=== PATIENT | male | born 1965 | race Caucasian/White ===

== ENCOUNTER 2017-03-28 13:38 | Emergency (ER) | payer MEDICAID ==
[2017-03-28 13:52] VITALS: BP 137/87
--- NOTE | 2017-03-28 14:35 | EDM.PDOC ---
ED HPI GENERAL MEDICAL PROBLEM - General Chief Complaint: Upper Extremity Injury/Pain Stated Complaint: DIZZY/TINGLING ON LT SIDE/PAIN IN SHOULDER BLADE Time Seen by Provider: 03/28/17 14:28 Source of Information: Reports: Patient, RN Notes Reviewed History Limitations: Reports: No Limitations - History of Present Illness INITIAL COMMENTS - FREE TEXT/NARRATIVE: 51-year-old gentleman presents emergency department day complaint of left arm pain and tingling been going on for the last several hours somewhat intermittent no nausea vomiting shortness breath chest pain no real diaphoresis he does have cardiac history has an AICD in place is a tobacco user Right Shoulder Pain Score (Numeric/FACES): 2 - Related Data Allergies Allergy/AdvReac Type Severity Reaction Status Date / Time aspirin AdvReac Stomach Verified 03/25/16 18:59 Upset Home Meds: Home Meds Cyclobenzaprine [Flexeril] 10 mg PO TID PRN 01/02/15 [History] Propranolol [Inderal LA] 120 mg PO DAILY 01/02/15 [History] SUMAtriptan Succinate [Imitrex] 100 mg PO ASDIRECTED PRN 01/02/15 [History] Simvastatin [Zocor] 20 mg PO BEDTIME 01/02/15 [History] Tamsulosin [Flomax] 0.4 mg PO DAILY 01/02/15 [History] Sacubitril/Valsartan [Entresto 49 mg-51 mg Tablet] 41 mg PO BID 03/28/17 [ History] Past Medical History HEENT History: Reports: Impaired Vision Other HEENT History: wears glasses Cardiovascular History: Reports: High Cholesterol, Hypertension, Pacemaker Respiratory History: Reports: Bronchitis, Recurrent Gastrointestinal History: Reports: Colon Polyp, GERD, Hemorrhoids Genitourinary History: Reports: Prostate Disorder Musculoskeletal History: Reports: Back Pain, Chronic, Fracture Neurological History: Reports: Migraines - Infectious Disease History Infectious Disease History: Reports: Chicken Pox, Measles - Past Surgical History Cardiovascular Surgical History: Reports: Pacer GI Surgical History: Reports: Colonoscopy, Hernia, Inguinal, Hernia Repair/Other , Other (See Below) Musculoskeletal Surgical History: Reports: Other (See Below) Social & Family History - Family History Neurological: Reports: CVA Endocrine/Metabolic: Reports: IDDM - Tobacco Use Smoking Status *Q: Current Every Day Smoker Years of Tobacco use: 35 Packs/Tins Daily: 1 Second Hand Smoke Exposure: Yes - Caffeine Use Caffeine Use: Reports: Coffee - Alcohol Use Days Per Week of Alcohol Use: 1 Number of Drinks Per Day: 2 Total Drinks Per Week: 2 Date of Last Drink: 04/15/17 - Recreational Drug Use Recreational Drug Use: No Review of Systems - Review of Systems Review Of Systems: See Below Constitutional: Reports: No Symptoms Respiratory: Reports: No Symptoms Cardiovascular: Reports: No Symptoms GI/Abdominal: Reports: No Symptoms Musculoskeletal: Reports: Arm Pain Neurological: Reports: Tingling ED EXAM, GENERAL - Physical Exam Exam: See Below Free Text/Narrative:: General: Male, not in any distress, alert and oriented x3 HEENT: head is atraumatic normocephalic, eyes pupils equal round reactive to light, sclera clear no conjunctivitis appreciated. Ears tympanic membranes clear and jimenes landmarks and light reflex are present bilaterally canals are clear. Nose no septal deviation, nares are clear, no blood present. Mouth mucosa is moist and pink no erythema or exudate noted in soft palate, tongue is midline uvula is midline, dentition is intact. Neck: Supple no thyromegaly no tracheal deviation. Nodes: Cervical nodes subclavicular nodes nontender no palpable lymphadenopathy noted. Lungs: clear to auscultation bilaterally with symmetrical respirations, no adventitious noise appreciated. CV: Regular rate and rhythm S1 and S2 appreciated no murmurs rubs or gallops noted. Abdomen: Soft, nontender, no palpable masses or organomegaly appreciated, no distention no guarding bowel sounds are present, . Neuro: Cranial nerves II through XII grossly intact Skin: Warm and dry, intact Extremities: No lower extremity edema appreciated, Course - Vital Signs Last Recorded V/S: Last Vital Signs Temp 97.3 F 03/28/17 13:49 Pulse 72 03/28/17 13:49 Resp 18 03/28/17 13:49 BP 137/87 03/28/17 13:49 Pulse Ox - Orders/Labs/Meds Orders: Active Orders 24 hr Category Date Time Status Cardiac Monitoring [RC] .As Directed Care 03/28/17 14:31 Active EKG Documentation Completion [RC] ASDIRECTED Care 03/28/17 14:32 Active Chest 2V [CR] Stat Exams 03/28/17 14:32 Taken EKG 12 Lead [EK] Stat Ther 03/28/17 14:32 Ordered Labs: Laboratory Tests 03/28/17 03/28/17 03/28/17 Range/Units 14:45 14:45 14:45 WBC 10.6 (4.5-11.0) K/uL RBC 5.54 (4.30-5.90) M/uL Hgb 16.8 H (12.0-15.0) g/dL Hct 49.6 (40.0-54.0) % MCV 90 (80-98) fL MCH 30 (27-31) pg MCHC 34 (32-36) % Plt Count 223 (150-400) K/uL Neut % (Auto) 57 (36-66) % Lymph % (Auto) 28 (24-44) % Yell % (Auto) 10 H (2-6) % Eos % (Auto) 3 (2-4) % Baso % (Auto) 1 (0-1) % D-Dimer, Quantitative 504 H (0.0-400.0) ng/mL Sodium 141 (140-148) mmol/L Potassium 4.5 (3.6-5.2) mmol/L Chloride 104 (100-108) mmol/L Carbon Dioxide 28 (21-32) mmol/L Anion Gap 8.7 (5.0-14.0) mmol/L BUN 13 (7-18) mg/dL Creatinine 0.9 (0.8-1.3) mg/dL Est Cr Clr Drug Dosing 79.48 mL/min Estimated GFR (MDRD) > 60 (>60) Glucose 88 (74-106) mg/dL Calcium 9.6 (8.5-10.1) mg/dL Total Bilirubin 0.5 (0.2-1.0) mg/dL AST 22 (15-37) U/L ALT 32 (12-78) U/L Alkaline Phosphatase 83 (46-116) U/L Troponin I < 0.017 (0.000-0.056) ng/mL Total Protein 6.9 (6.4-8.2) g/dL Albumin 3.4 (3.4-5.0) g/dL Globulin 3.5 (2.3-3.5) g/dL Albumin/Globulin Ratio 1.0 L (1.2-2.2) Departure - Departure Time of Disposition: 15:50 Disposition: Home, Self-Care 01 Condition: Good Clinical Impression: Left arm pain, Left arm pain - Discharge Information Referrals: Karly Meng NP [Primary Care Provider] - Forms: ED Department Discharge Additional Instructions: Continue with your regular medications, Please followup with your primary care provider in 3-5 days if not better, please call return to the emergency department with worsening of symptoms. - My Orders Last 24 Hours: My Active Orders 03/28/17 14:31 Cardiac Monitoring [RC] .As Directed 03/28/17 14:32 EKG Documentation Completion [RC] ASDIRECTED Chest 2V [CR] Stat EKG 12 Lead [EK] Stat - Assessment/Plan Last 24 Hours: My Active Orders 03/28/17 14:31 Cardiac Monitoring [RC] .As Directed 03/28/17 14:32 EKG Documentation Completion [RC] ASDIRECTED Chest 2V [CR] Stat EKG 12 Lead [EK] Stat Plan: Assessment Acuity = acute Site and laterality = left arm pain Etiology = probably related to recent implantation of defibrillator Manifestations = none Location of injury = Home Lab values = CBC, CMP, troponin all within normal limits d-dimer elevated at 504 probably related to recent surgery, EKG demonstrates left bundle branch block, chest x-ray shows no acute process Plan I did review lab work EKG chest x-ray results with him he elected to watchful waiting rather than proceed with any further image studies such as a CAT scan, he is to follow-up with his primary care in the next 3-5 days if no improvement Patient was in agreement with the plan all questions were answered, they were instructed to return to the emergency department or call for worsening symptoms. This note was dictated using [employer] voice recognition software please call with any questions.
--- NOTE | 2017-03-29 09:05 | CR ---
Chest 2V INDICATION: Left arm pain FINDINGS: Left-sided AICD in place. Chest otherwise negative.
== END 2017-03-28 16:14 | disposition home or self-care (01) ==
LOC: JP.ED 13:38
DX: M79.602 Pain in left arm (principal); F17.210 Nicotine dependence, cigarettes, uncomplicated
CPT/HCPCS: 36415; 71020; 71020-26; 80053; 84484; 85025; 85379; 93005; 99284-25

== ENCOUNTER 2019-03-03 06:56 | Day surgery (SDC) | payer MEDICAID ==
[2019-03-03] MEDS ORDERED: Lactated Ringers 1,000 ML IV SCH ×2 (07:45→09:00)
[2019-03-03] MEDS ORDERED: Midazolam 1 MG/ML 2 ML SDV ONE (08:19)
[2019-03-03] MEDS ORDERED: Propofol 200 MG/20 ML SDV ONE (08:19)
[2019-03-03] MEDS ORDERED: fentaNYL 100 MCG/2 ML SDV ONE (08:19)
[2019-03-03 10:09] VITALS: BP 94/61; PULSE 60
--- NOTE | 2019-03-03 11:43 | OR ---
DATE OF PROCEDURE: 03/03/2019 SURGEON: Nba Carballo MD PREOPERATIVE DIAGNOSIS: History of colon polyps. POSTOPERATIVE DIAGNOSES: Diverticulosis, history of colon polyps. PROCEDURE: Colonoscopy to the cecum. ANESTHESIA: IV anesthesia with monitored anesthesia care. INDICATION: This 53-year-old white male is referred for a colonoscopy because of a history of colon polyps. He says the last colonoscopic exam was done about 4 years ago. I counseled him for the procedure, including risks and alternatives, and he gave his informed consent to proceed. DESCRIPTION OF PROCEDURE: The patient was placed in the left lateral decubitus position. IV anesthesia was administered by the Anesthesia Service. Time-out was held. A rectal exam was performed, which was unremarkable. The flexible video Olympus colonoscope was introduced through his anus, up his rectum, out his colon all the way to the cecum. En route, we saw a few scattered left-sided diverticula. There was no bleeding or inflammation associated with them. Once the cecum was reached, the scope was slowly withdrawn, examining the mucosa throughout. No additional mucosal abnormalities were noted. The scope was retroflexed in the rectum with the distal rectum appearing unremarkable. The scope was straightened and removed. He tolerated the procedure well. Nba Carballo MD /[id number]
== END 2019-03-03 10:11 | disposition home or self-care (01) ==
LOC: JP.SDS 06:56
PROVIDERS: ATTEND Surgery
DX: Z12.11 Encounter for screening for malignant neoplasm of colon (principal); K57.30 Diverticulosis of large intestine without perforation or abscess without bleeding; K21.9 Gastro-esophageal reflux disease without esophagitis; E78.5 Hyperlipidemia, unspecified; F17.210 Nicotine dependence, cigarettes, uncomplicated; Z88.6 Allergy status to analgesic agent; Z86.010 Personal history of colon polyps
CPT/HCPCS: 45378; J2250; J2704; J3010; J7120

== ENCOUNTER 2020-05-05 10:56 | Emergency (ER) | payer MEDICAID ==
[2020-05-05 11:25] VITALS: BP 99/62; PULSE 91
--- NOTE | 2020-05-05 11:43 | EDM.PDOC ---
ED HPI GENERAL MEDICAL PROBLEM - General Chief Complaint: Gastrointestinal Problem Stated Complaint: COVID SYMPTOMS Time Seen by Provider: 05/05/20 11:20 Source of Information: Reports: Patient, Family History Limitations: Reports: No Limitations - History of Present Illness INITIAL COMMENTS - FREE TEXT/NARRATIVE: 54-year-old male with diarrhea for the past 5 days, some mild to moderate discomfort of his upper abdomen but able to eat and drink. No fever chills, no nausea or vomiting. - Related Data Home Meds: Home Meds SUMAtriptan succinate [Imitrex] 100 mg PO ASDIRECTED PRN 01/02/15 [History] Simvastatin [Zocor] 20 mg PO BEDTIME 01/02/15 [History] Tamsulosin [Flomax] 0.4 mg PO DAILY 01/02/15 [History] Sacubitril/Valsartan [Entresto 49 mg-51 mg Tablet] 49 - 51 mg PO BID 03/28/17 [History] Aspirin [Ecotrin] 81 mg PO DAILY 01/06/18 [History] Cyclobenzaprine [Flexeril] 10 mg PO TID PRN 01/06/18 [History] Omeprazole 40 mg PO DAILY 01/06/18 [History] Spironolactone [Aldactone] 25 mg PO DAILY 01/06/18 [History] carvediloL [Coreg] 25 mg PO BID 01/06/18 [History] Celecoxib [CeleBREX] 100 mg PO BID 02/25/18 [History] Past Medical History HEENT History: Reports: Impaired Vision Other HEENT History: wears glasses Cardiovascular History: Reports: High Cholesterol, Hypertension, Pacemaker, Other (See Below) Other Cardiovascular History: "weak heart vessel" Respiratory History: Reports: Bronchitis, Recurrent, Pneumonia, Recurrent Gastrointestinal History: Reports: Colon Polyp, GERD, Hemorrhoids Genitourinary History: Reports: Prostate Disorder Musculoskeletal History: Reports: Back Pain, Chronic, Fracture Neurological History: Reports: Migraines - Infectious Disease History Infectious Disease History: Reports: Chicken Pox, Shingles - Past Surgical History HEENT Surgical History: Reports: Tonsillectomy Cardiovascular Surgical History: Reports: Pacer Respiratory Surgical History: Reports: None GI Surgical History: Reports: Colonoscopy, EGD, Hernia, Inguinal, Hernia Repair/Other, Other (See Below) Other GI Surgeries/Procedures: hemorrhoidectomy Male Surgical History: Reports: None Neurological Surgical History: Reports: None Musculoskeletal Surgical History: Reports: Other (See Below) Other Musculoskeletal Surgeries/Procedures:: left knee surgery Social & Family History - Family History Neurological: Reports: CVA Endocrine/Metabolic: Reports: IDDM - Tobacco Use Tobacco Use Status *Q: Current Every Day Tobacco User Years of Tobacco use: 35 Packs/Tins Daily: 0.5 - Caffeine Use Caffeine Use: Reports: Coffee, Soda ED ROS GENERAL - Review of Systems Review Of Systems: See Below Constitutional: Denies: Fever, Chills HEENT: Reports: No Symptoms Respiratory: Denies: Shortness of Breath Cardiovascular: Denies: Chest Pain GI/Abdominal: Reports: Abdominal Pain, Diarrhea. Denies: Hematemesis, Hematochezia, Nausea, Vomiting Musculoskeletal: Reports: No Symptoms Skin: Reports: No Symptoms Neurological: Reports: No Symptoms Psychiatric: Reports: No Symptoms ED EXAM, GI/ABD - Physical Exam Exam: See Below Exam Limited By: No Limitations General Appearance: Alert, No Apparent Distress Eyes: Bilateral: Normal Appearance (Good hydration, no jaundice) Throat/Mouth: Normal Inspection Head: Atraumatic Respiratory/Chest: No Respiratory Distress, Lungs Clear Cardiovascular: Regular Rate, Rhythm GI/Abdominal Exam: Tender (Mild discomfort to palpation just in the epigastric area only,no guarding no rebound) Extremities: Normal Inspection Neurological: Alert, Oriented Psychiatric: Normal Affect, Normal Mood Skin Exam: Warm, Dry Course - Vital Signs Last Recorded V/S: Last Vital Signs Temp 96.0 F L 05/05/20 11:25 Pulse 91 05/05/20 11:25 Resp 14 05/05/20 11:25 BP 99/62 05/05/20 11:25 Pulse Ox 94 L 05/05/20 11:25 - Orders/Labs/Meds Orders: Active Orders 24 hr Category Date Time Status CLOS DIFFICILE PCR W/REFLEX [RM] Stat Lab 05/05/20 12:00 Results CULTURE STOOL + SHIGATOX [RM] Stat Lab 05/05/20 12:00 Results Labs: Laboratory Tests 05/05/20 05/05/20 05/05/20 Range/Units 11:41 11:47 11:47 WBC 7.1 (4.5-11.0) K/uL RBC 5.58 (4.30-5.90) M/uL Hgb 16.5 H (12.0-15.0) g/dL Hct 49.5 (40.0-54.0) % MCV 89 (80-98) fL MCH 30 (27-31) pg MCHC 33 (32-36) % Plt Count 196 (150-400) K/uL Add Manual Diff Yes Neutrophils % (Manual) 46 (36-66) % Band Neutrophils % 4 L (5-11) % Lymphocytes % (Manual) 25 (24-44) % Monocytes % (Manual) 24 H (2-6) % Eosinophils % (Manual) 1 L (2-4) % Polychromasia Sodium 132 L (140-148) mmol/L Potassium 4.8 (3.6-5.2) mmol/L Chloride 97 L (100-108) mmol/L Carbon Dioxide 25 (21-32) mmol/L Anion Gap 14.8 H (5.0-14.0) mmol/L BUN 20 H D (7-18) mg/dL Creatinine 1.1 (0.8-1.3) mg/dL Est Cr Clr Drug Dosing 62.79 mL/min Estimated GFR (MDRD) > 60 (>60) Glucose 112 H (74-106) mg/dL Calcium 8.9 (8.5-10.1) mg/dL Total Bilirubin 0.6 (0.2-1.0) mg/dL AST 13 L (15-37) U/L ALT 23 (12-78) U/L Alkaline Phosphatase 75 (46-116) U/L Total Protein 7.2 (6.4-8.2) g/dL Albumin 3.2 L (3.4-5.0) g/dL Globulin 4.0 H (2.3-3.5) g/dL Albumin/Globulin Ratio 0.8 L (1.2-2.2) Lipase 250 (73-393) U/L SARS CoV-2 RNA Rapid ALLYSON Negative - Re-Assessments/Exams Free Text/Narrative Re-Assessment/Exam: 05/05/20 11:58 CBC, CMP and lipase were obtained, if patient can give a stool sample studies will be run. A coronavirus was also obtained. Patient was able to give stool sample, very green foamy liquid stool. WBC, culture, and C. difficile's were obtained. 05/05/20 13:09 Labs were reassuring, coronavirus negative. C. difficile negative no WBCs in the stool. Encourage probiotics and staying hydrated and rechecking in 2 to 3 days if not improving satisfactorily and results of the culture will be relayed to the patient when available. Departure - Departure Time of Disposition: 13:18 Disposition: Home, Self-Care 01 Clinical Impression: Diarrhea Qualifiers: Diarrhea type: unspecified type Qualified Code(s): R19.7 - Diarrhea, unspecified - Discharge Information Instructions: Diarrhea, Adult Referrals: Erin Grover PA-C [Primary Care Provider] - Forms: ED Department Discharge Care Plan Goals: Rest for the next few days, increase activity as tolerated and stay hydrated with fluids. Probiotics such as in yogurt may be beneficial. Recheck in 3 to 4 days if not improving satisfactorily, or return sooner if worsening such as fever, increased abdominal pain or vomiting. Sepsis Event Note (ED) - Evaluation Sepsis Screening Result: No Definite Risk - Focused Exam Vital Signs: Vital Signs Temp Pulse Resp BP Pulse Ox 05/05/20 11:25 96.0 F L 91 14 99/62 94 L - My Orders Last 24 Hours: My Active Orders 05/05/20 12:00 CLOS DIFFICILE PCR W/REFLEX [RM] Stat CULTURE STOOL + SHIGATOX [RM] Stat - Assessment/Plan Last 24 Hours: My Active Orders 05/05/20 12:00 CLOS DIFFICILE PCR W/REFLEX [RM] Stat CULTURE STOOL + SHIGATOX [RM] Stat
== END 2020-05-05 13:19 | disposition home or self-care (01) ==
LOC: JP.ED 10:56
DX: R19.7 Diarrhea, unspecified (principal); E78.00 Pure hypercholesterolemia, unspecified; I10 Essential (primary) hypertension; N42.9 Disorder of prostate, unspecified; K21.9 Gastro-esophageal reflux disease without esophagitis; F17.210 Nicotine dependence, cigarettes, uncomplicated; Z79.82 Long term (current) use of aspirin; Z79.899 Other long term (current) drug therapy; Z20.828 Contact with and (suspected) exposure to other viral communicable diseases
CPT/HCPCS: 36415; 80053; 83690; 85025; 87046; 87493; 87899; 89055; 99284; U0002

== ENCOUNTER 2021-02-16 10:51 | Emergency (ER) | payer MEDICAID ==
--- NOTE | 2021-02-16 11:20 | EDM.PDOC ---
ED HPI GENERAL MEDICAL PROBLEM - General Chief Complaint: Respiratory Problem Stated Complaint: CONGESTION,COUGH Time Seen by Provider: 02/16/21 11:20 Source of Information: Reports: Patient, RN Notes Reviewed History Limitations: Reports: No Limitations - History of Present Illness INITIAL COMMENTS - FREE TEXT/NARRATIVE: Oswaldo presents today for cough, chest congestion for 2 weeks. He reports he has tried OTC cough medication and cold medications without any improvement. He reports yellow/green/brown mucus production with cough at times. He denies fever, chills, nausea, vomiting, change in bowel/bladder or other concerns. He reports daily use of tobacco 1/2 to 1ppd. - Related Data Allergies Allergy/AdvReac Type Severity Reaction Status Date / Time No Known Allergies Allergy Verified 02/16/21 11:05 Home Meds: Home Meds Simvastatin [Zocor] 20 mg PO BEDTIME 01/02/15 [History] Tamsulosin [Flomax] 0.4 mg PO DAILY 01/02/15 [History] Sacubitril/Valsartan [Entresto 49 mg-51 mg Tablet] 49 - 51 mg PO BID 03/28/17 [History] Aspirin [Ecotrin] 81 mg PO DAILY 01/06/18 [History] Cyclobenzaprine [Flexeril] 10 mg PO TID PRN 01/06/18 [History] Omeprazole 40 mg PO DAILY 01/06/18 [History] Spironolactone [Aldactone] 25 mg PO DAILY 01/06/18 [History] carvediloL [Coreg] 25 mg PO BID 01/06/18 [History] Celecoxib [CeleBREX] 100 mg PO BID 02/25/18 [History] Past Medical History HEENT History: Reports: Impaired Vision Other HEENT History: wears glasses Cardiovascular History: Reports: High Cholesterol, Hypertension, Pacemaker, Other (See Below) Other Cardiovascular History: "weak heart vessel" Respiratory History: Reports: Bronchitis, Recurrent, Pneumonia, Recurrent Gastrointestinal History: Reports: Colon Polyp, GERD, Hemorrhoids Genitourinary History: Reports: Prostate Disorder Musculoskeletal History: Reports: Back Pain, Chronic, Fracture Neurological History: Reports: Migraines - Infectious Disease History Infectious Disease History: Reports: Chicken Pox, Shingles - Past Surgical History HEENT Surgical History: Reports: Tonsillectomy Cardiovascular Surgical History: Reports: Pacer Respiratory Surgical History: Reports: None GI Surgical History: Reports: Colonoscopy, EGD, Hernia, Inguinal, Hernia Repair/Other, Other (See Below) Other GI Surgeries/Procedures: hemorrhoidectomy Male Surgical History: Reports: None Neurological Surgical History: Reports: None Musculoskeletal Surgical History: Reports: Other (See Below) Other Musculoskeletal Surgeries/Procedures:: left knee surgery Social & Family History - Family History Neurological: Reports: CVA Endocrine/Metabolic: Reports: IDDM - Tobacco Use Tobacco Use Status *Q: Current Every Day Tobacco User Years of Tobacco use: 40 Packs/Tins Daily: 1 - Caffeine Use Caffeine Use: Reports: Coffee, Soda - Recreational Drug Use Recreational Drug Use: No ED ROS GENERAL - Review of Systems Review Of Systems: See Below Constitutional: Reports: No Symptoms HEENT: Reports: Sinus Problem (congestion) Respiratory: Reports: Cough, Sputum. Denies: Shortness of Breath, Wheezing, Pleuritic Chest Pain, Hemoptysis Cardiovascular: Denies: Chest Pain, Blood Pressure Problem, Claudication, Dyspnea on Exertion, Edema, Lightheadedness, Orthopnea, Palpitations, PND, Syncope Endocrine: Reports: No Symptoms GI/Abdominal: Reports: No Symptoms : Reports: No Symptoms Musculoskeletal: Reports: No Symptoms Skin: Reports: No Symptoms Neurological: Reports: No Symptoms Psychiatric: Reports: No Symptoms Hematologic/Lymphatic: Reports: No Symptoms Immunologic: Reports: No Symptoms ED EXAM, GENERAL - Physical Exam Exam: See Below Exam Limited By: No Limitations General Appearance: Alert, WD/WN, No Apparent Distress Eye Exam: Bilateral Eye: Normal Inspection, PERRL Ears: Normal External Exam, Normal Canal, Hearing Grossly Normal, Normal TMs Nose: Normal Inspection, No Blood, Nasal Swelling Throat/Mouth: Normal Inspection, Normal Lips, Normal Gums, Normal Oropharynx, Normal Voice, No Airway Compromise Head: Atraumatic, Normocephalic Neck: Normal Inspection, Supple, Non-Tender, Full Range of Motion. No: Lymphadenopathy (R), Lymphadenopathy (L) Respiratory/Chest: No Respiratory Distress, No Accessory Muscle Use, Chest Non- Tender, Decreased Breath Sounds, Rales, Rhonchi. No: Crackles, Wheezing, Stridor, Pleural Rub, Accessory Muscle Use, Retractions, Splinting, Prolonged Expiration Cardiovascular: Normal Peripheral Pulses, Regular Rate, Rhythm, No Edema, No Gallop, No Murmur, No Rub Peripheral Pulses: 4+: Radial (L), Radial (R) GI/Abdominal: Normal Bowel Sounds, Soft, Non-Tender, No Organomegaly, No Distention, No Abnormal Bruit, No Mass Back Exam: Normal Inspection, Full Range of Motion. No: CVA Tenderness (R), CVA Tenderness (L) Extremities: Normal Inspection, Normal Range of Motion, Non-Tender, No Pedal Edema, Normal Capillary Refill Neurological: Alert, Oriented, CN II-XII Intact, Normal Cognition, Normal Gait, Normal Reflexes, No Motor/Sensory Deficits Psychiatric: Normal Affect, Normal Mood Skin Exam: Warm, Dry, Intact, Normal Color, No Rash Lymphatic: No Adenopathy Course - Vital Signs Last Recorded V/S: Last Vital Signs Temp 36.0 C L 02/16/21 11:08 Pulse 64 02/16/21 11:08 Resp 15 02/16/21 11:08 BP 115/69 02/16/21 11:08 Pulse Ox 97 02/16/21 11:08 - Orders/Labs/Meds Labs: Laboratory Tests 02/16/21 02/16/21 Range/Units 11:40 11:40 WBC 9.7 (4.5-11.0) K/uL RBC 5.18 (4.30-5.90) M/uL Hgb 16.0 H (12.0-15.0) g/dL Hct 46.5 (40.0-54.0) % MCV 90 (80-98) fL MCH 31 (27-31) pg MCHC 34 (32-36) % Plt Count 223 (150-400) K/uL Neut % (Auto) 55.7 (36-66) % Lymph % (Auto) 27.7 (24-44) % [place] % (Auto) 8.7 H (2-6) % Eos % (Auto) 7.0 H (2-4) % Baso % (Auto) 0.9 (0-1) % Sodium 135 L (140-148) mmol/L Potassium 4.7 (3.6-5.2) mmol/L Chloride 102 (100-108) mmol/L Carbon Dioxide 24 (21-32) mmol/L Anion Gap 13.7 (5.0-14.0) mmol/L BUN 17 (7-18) mg/dL Creatinine 0.8 (0.8-1.3) mg/dL Est Cr Clr Drug Dosing TNP Estimated GFR (MDRD) > 60 (>60) Glucose 110 H (74-106) mg/dL Calcium 8.6 (8.5-10.1) mg/dL Patient offered COVID test, he declined. - Radiology Interpretation Free Text/Narrative:: X-ray shows no acute findings. Lab and x-ray discussed with patient, due to extensive smoking history we will treat with antibiotics. He is advised to obtain a primary provider, work on tobacco cessation and to be aware of COPD in case he has no improvement. Patient and his verbalized understanding. Departure - Departure Time of Disposition: 12:10 Disposition: Home, Self-Care 01 Condition: Good Clinical Impression: Walking pneumonia - Discharge Information *PRESCRIPTION DRUG MONITORING PROGRAM REVIEWED*: Not Applicable *COPY OF PRESCRIPTION DRUG MONITORING REPORT IN PATIENT SARAH: Not Applicable Instructions: Community-Acquired Pneumonia, Adult, [id number] Referrals: Erin Grover PA-C [Primary Care Provider] - Forms: ED Department Discharge Additional Instructions: You have been evaluated and treated for cough, chest congestion - pneumonia. Take levofloxacin 750mg by mouth once a day for 7 days. Drink plenty of water to stay hydrated. Work on decreased coffee and soda pop intake. Take tylenol and ibuprofen as needed for pain. Return for any worsening, issues or concerns. Follow up with primary provider as needed. Sepsis Event Note (ED) - Evaluation Sepsis Screening Result: No Definite Risk - Focused Exam Vital Signs: Vital Signs Temp Pulse Resp BP Pulse Ox 02/16/21 11:08 36.0 C L 64 15 115/69 97 02/16/21 11:04 36.0 C L 64 15 115/69 97 - Assessment/Plan Assessment:: Walking pneumonia Plan: Patient evaluated and treated for cough, chest congestion - pneumonia. Take levofloxacin 750mg by mouth once a day for 7 days. Drink plenty of water to stay hydrated. Work on decreased coffee and soda pop intake. Take tylenol and ibuprofen as needed for pain. Return for any worsening, issues or concerns. Follow up with primary provider as needed.
--- NOTE | 2021-02-16 12:22 | CRLCR ---
For Patients: As a result of the Cures Act, medical imaging exams and procedure reports are released immediately into your electronic medical record. You may view this report before your referring provider. If you have questions, please contact your health care provider. INDICATION: Cough. Congestion. TECHNIQUE: PA and lateral views. COMPARISON: None. FINDINGS: Dual lead AICD. Normal heart size. Normal pulmonary vasculature. Lungs are grossly clear. Specifically, no airspace opacities to suggest pneumonia. No pleural fluid or pneumothorax. Remote appearing mild superior endplate compression fracture of L1. IMPRESSION: No radiographic evidence of pneumonia. Dictated by Rene Talavera MD @ 02/16/2021 12:20:48 PM Dictated by: Rene Talavera MD @ 02/16/2021 12:21:16 (Electronically Signed)
[2021-02-16 12:26] VITALS: BP 115/69; PULSE 64
== END 2021-02-16 12:37 | disposition home or self-care (01) ==
LOC: JP.ED 10:51
DX: J18.9 Pneumonia, unspecified organism (principal)
CPT/HCPCS: 36415; 71046; 80048; 85025; 99283-25

== ENCOUNTER 2024-01-13 18:52 | Emergency (ER) | payer MEDICAID ==
[2024-01-13 18:59] VITALS: BP 136/73; PULSE 72
[2024-01-13] MEDS: Lidocaine 1% with EPINEPHrine 1:100,000 50 ML MDV INJECT ONE (20:02)
[2024-01-13] MEDS: Diphtheria,Pertussis(Acell),Tetanus Vaccine 0.5 ML Syringe IM ONE (20:09)
[2024-01-13] MEDS: Bacitracin Oint 1 GM U/D Packet TOP ONE (20:10)
== END 2024-01-13 20:26 | disposition home or self-care (01) ==
LOC: JP.ED 18:52
DX: S61.212A Laceration without foreign body of right middle finger without damage to nail, initial encounter (principal); F17.210 Nicotine dependence, cigarettes, uncomplicated; I11.0 Hypertensive heart disease with heart failure; I50.9 Heart failure, unspecified; E78.00 Pure hypercholesterolemia, unspecified; K21.9 Gastro-esophageal reflux disease without esophagitis; Z95.0 Presence of cardiac pacemaker; Z79.82 Long term (current) use of aspirin; Z79.899 Other long term (current) drug therapy; W23.0XXA Caught, crushed, jammed, or pinched between moving objects, initial encounter
CPT/HCPCS: 12002; 90471; 90715; 99282-25; 99283